=== PATIENT | female | born 1990 | race Caucasian/White ===

== ENCOUNTER 2020-12-25 18:41 | Observation (INO) | payer OTHER, SELFPAY ==
[2020-12-25 20:35] VITALS: BP 128/87; PULSE 99
[2020-12-25 20:46] VITALS: BP 133/79; PULSE 83
[2020-12-25 21:00] VITALS: BP 127/78; PULSE 99
[2020-12-25 21:16] VITALS: BP 126/81; PULSE 86
[2020-12-25 21:30] VITALS: BP 121/82; PULSE 102
[2020-12-25 21:46] VITALS: BP 133/79; PULSE 79
[2020-12-25 21:56] VITALS: BMI 35.5
--- NOTE | 2020-12-25 21:56 | LDADM ---
This patient, Maame Muir, was admitted to Labor/Delivery/Recovery 105 on 12/25/20 at 18:41. Plans for labor, pain management and were discussed with patient. Patient/family oriented to hospital policies and general routines including ID bracelet, bed and alarms, visiting hours, pain management, procedures, bathroom and other care routines, personal items, smoking policy, room service/diet and guest tray routines, security routines, and visiting hours. Patient/Family are encouraged to report perceived risks to care and to ask questions if they do not understand what they are told or what they should do. See OBIX for further documentation.
--- NOTE | 2020-12-26 07:53 | PM.OBTRLD ---
OB - Triage/Final Diagnosis Visit Information Date of evaluation: 12/25/20 Reason for evaluation: threatened labor Comments/Additional reasons for admission: I have assessed the risk for this patient, Maame Muir, and determined that she would benefit from observation care. Evaluation Vital signs: Vital Signs - 24 hr 12/25/20 20:35 12/25/20 20:46 12/25/20 21:00 Pulse Rate 99 83 99 Blood Pressure 128/87 133/79 127/78 12/25/20 21:16 12/25/20 21:30 12/25/20 21:46 Pulse Rate 86 102 H 79 Blood Pressure 126/81 121/82 133/79
== END 2020-12-25 22:08 | disposition home or self-care (01) ==
PROVIDERS: Admitting Provider Obstetrics & Gynecology; Visit Provider Obstetrics & Gynecology
DX: O47.03 False labor before 37 completed weeks of gestation, third trimester (principal); Z3A.36 36 weeks gestation of pregnancy
CPT/HCPCS: G0378; G0379

== ENCOUNTER 2020-12-31 12:11 | Outpatient (RCR) | payer OTHER, SELFPAY ==
[2020-11-30 09:25] VITALS: BP 126/75; PULSE 91
[2020-11-30 09:48] LABS: Basophils Percent Auto 0.2 % (0.2-1.2); Eosinophils Absolute Auto 0.1 K/mm3 (0-0.3); Eosinophils Percent Auto 0.7 % (0-4.4); Hemoglobin 11.7 g/dL (12.0-15.0); Immature Granulocyte Absolute 0.11 K/mm3 (0.00-0.031); Immature Granulocyte Percent A 1.2 % (0-0.5); Lymphocytes Absolute Auto 1.52 K/mm3 (0.9-3.2); Lymphocytes Percent Auto 16.8 % (18.3-44.2); Mean Corpuscular HGB Conc 33.4 g/dl (32-36); Mean Corpuscular Hemoglobin 29.1 pg (26-34); Mean Corpuscular Volume 87.1 fl (80-100); Mean Platelet Volume 11.6 fl (7.4-10.4); Monocytes Absolute Auto 0.7 K/mm3 (0.1-0.6); Monocytes Percent Auto 7.4 % (2.6-8.5); Neutrophils Absolute Auto 6.7 K/mm3 (1.3-6.7); Neutrophils Percent Auto 73.7 % (45.5-73.1); Platelet Count Result 172 k/mm3 (150-375); Red Blood Count 4.02 M/mm3 (4.2-5.4); Red Cell Distribution Width 13.2 % (11.5-14.5)
[2020-11-30 09:59] LABS: Alanine Aminotransferase 22 U/L (4-35); Albumin Level 3.6 g/dL (3.5-5.1); Alkaline Phosphatase 107 U/L (38-126); Anion Gap 6 mmol/L (8-16); Aspartate Amino Transferase 22 U/L (14-36); Bilirubin,Total 0.3 mg/dL (0.2-1.3); Blood Urea Nitrogen 9 mg/dL (7-17); Calcium 8.7 mg/dL (8.4-10.2); Carbon Dioxide 20 mmol/L (22-30); Chloride 110 mmol/L (98-107); Estimated Glomerular Filt Rate > 60; Glucose 81 mg/dL (65-110); Potassium 3.6 mmol/L (3.4-5.0); Sodium 136 mmol/L (137-145); Uric Acid 2.3 mg/dL (2.5-7.5)
[2020-11-30 10:00] LABS: Creatinine Urine 69.8 mg/dL; Total Protein Urine Random 13 mg/dL; Ur Ttl Prot Creatinine Ratio 0.19 mg/mg (0-0.20)
[2020-11-30 10:08] LABS: Add Urine Microscopic? YES; Appearance Urine Cloudy (Clear); Bacteria Urine Trace /hpf; Bilirubin Urine Negative (Negative); Blood Urine Negative (Negative); Color Urine Yellow (Yellow); Glucose Urine UA Negative (Negative); Ketones Urine Negative (Negative); Leukocyte Esterase Ur Trace LEU/UL (NEGATIVE); Mucus Urine Rare /lpf; Nitrate Urine Negative (Negative); Protein Urine Negative (Negative); RBC Urine 0-2 /hpf (0-2); Specific Grav Ur 1.011 (1.001-1.035); Squamous Epithelial Cell Urine Moderate /hpf (Few); Urobilinogen Urine Negative mg/dL (<2.0); WBC Urine 0-3 /hpf (0-3)
[2020-12-10 10:04] VITALS: BP 126/75; PULSE 96
[2020-12-17 13:37] VITALS: BP 127/69; PULSE 94
[2020-12-24 13:13] VITALS: BP 117/75; PULSE 84
[2020-12-31 12:39] VITALS: BP 122/75; PULSE 92
== END 2021-01-07 12:47 | disposition home or self-care (01) ==
LOC: ANHOBOP 12:11
PROVIDERS: Visit Provider Student in an Organized Health Care Education/Training Program
DX: O26.893 Other specified pregnancy related conditions, third trimester (principal); R03.0 Elevated blood-pressure reading, without diagnosis of hypertension; Z3A.33 33 weeks gestation of pregnancy
CPT/HCPCS: 36415; 59025; 80053; 81001; 82570; 84156; 84550; 85025; 87086

== ENCOUNTER 2021-01-06 05:45 | Inpatient (IN) | payer OTHER, SELFPAY ==
[2021-01-06] VITALS (144 sets, daily range): BP systolic 80–147; BP diastolic 37–98; PULSE 62–208; RESP 16; TEMP 35.9–37.3; O2SAT 94–100; BMI 35.8
[2021-01-06 06:48] LABS: Basophils Percent Auto 0.2 % (0.2-1.2); Eosinophils Absolute Auto 0.1 K/mm3 (0-0.3); Eosinophils Percent Auto 0.6 % (0-4.4); Hematocrit 35.1 % (37.0-47.0); Immature Granulocyte Absolute 0.06 K/mm3 (0.00-0.031); Immature Granulocyte Percent A 0.6 % (0-0.5); Lymphocytes Absolute Auto 1.87 K/mm3 (0.9-3.2); Lymphocytes Percent Auto 18.4 % (18.3-44.2); Mean Corpuscular HGB Conc 34.2 g/dl (32-36); Mean Corpuscular Hemoglobin 29.1 pg (26-34); Mean Corpuscular Volume 85.2 fl (80-100); Mean Platelet Volume 12.2 fl (7.4-10.4); Monocytes Percent Auto 9.6 % (2.6-8.5); Neutrophils Absolute Auto 7.2 K/mm3 (1.3-6.7); Neutrophils Percent Auto 70.6 % (45.5-73.1); Platelet Count Result 182 k/mm3 (150-375); Red Blood Count 4.12 M/mm3 (4.2-5.4); Red Cell Distribution Width 13.1 % (11.5-14.5); White Blood Count 10.2 K/mm3 (4.5-10.0)
[2021-01-06] MEDS: OXYTOCIN 30 UNITS/NS 500 ML 30 UNITS/500 ML BAG IV CONT (07:02)
[2021-01-06] MEDS: LACTATED RINGERS 1,000 ML 125 ML IV CONT ×2 (07:03→13:06)
[2021-01-06 07:04] LABS: Alanine Aminotransferase 27 U/L (4-35); Albumin Level 3.5 g/dL (3.5-5.1); Alkaline Phosphatase 156 U/L (38-126); Anion Gap 5 mmol/L (8-16); Aspartate Amino Transferase 26 U/L (14-36); Bilirubin,Total 0.3 mg/dL (0.2-1.3); Blood Urea Nitrogen 7 mg/dL (7-17); Calcium 9.4 mg/dL (8.4-10.2); Carbon Dioxide 21 mmol/L (22-30); Chloride 109 mmol/L (98-107); Estimated Glomerular Filt Rate > 60; Glucose 84 mg/dL (65-110); Potassium 3.6 mmol/L (3.4-5.0); Sodium 135 mmol/L (137-145)
--- NOTE | 2021-01-06 07:17 | LDADM ---
This patient, Maame Muir, was admitted to Labor/Delivery/Recovery 106 on 01/06/21 at 05:45. Plans for labor, pain management and were discussed with patient. Patient/family oriented to hospital policies and general routines including ID bracelet, bed and alarms, visiting hours, pain management, procedures, bathroom and other care routines, personal items, smoking policy, room service/diet and guest tray routines, security routines, and visiting hours. Patient/Family are encouraged to report perceived risks to care and to ask questions if they do not understand what they are told or what they should do. See OBIX for further documentation.
[2021-01-06 07:24] LABS: Uric Acid 3.1 mg/dL (2.5-7.5)
--- NOTE | 2021-01-06 09:31 | WPDANESEPPF ---
Anes - Initial Pre Proc Eval Procedure: labor epidural Date/Time: 01/06/21 09:31 Surgeon: Demetrio Sheikh MD Pre Op Diagnosis: labor pain Pre Op Diagnosis: IOL Patient Data Age: 30 Gender: F Height: 1.6 m Weight: 91.81 kg Last Vital Signs Temp 37.0 C 01/06/21 07:04 Pulse 76 01/06/21 09:16 BP 130/74 01/06/21 09:16 Allergies Allergy/AdvReac Type Severity Reaction Status Date / Time No Known Allergies Allergy Unverified 03/26/15 13:33 Home Medications Medication Instructions Recorded Confirmed Type PNV cmb#95-ferrous fumarate-FA 1 tablet PO DAILY 12/10/20 12/25/20 History [] Laboratory Tests 01/06/21 01/06/21 01/06/21 06:30 06:30 06:30 WBC 10.2 K/mm3 H K/mm3 (4.5-10.0) RBC 4.12 M/mm3 L M/mm3 (4.2-5.4) Hgb 12.0 g/dL g/dL (12.0-15.0) Hct 35.1 % L % (37.0-47.0) MCV 85.2 fl fl (80-100) MCH 29.1 pg pg (26-34) MCHC 34.2 g/dl g/dl (32-36) RDW 13.1 % % (11.5-14.5) Plt Count 182 k/mm3 k/mm3 (150-375) MPV 12.2 fl H fl (7.4-10.4) Immature Gran % (Auto) 0.6 % H % (0-0.5) Neut % (Auto) 70.6 % % (45.5-73.1) Lymph % (Auto) 18.4 % % (18.3-44.2) Morris % (Auto) 9.6 % H % (2.6-8.5) Eos % (Auto) 0.6 % % (0-4.4) Baso % (Auto) 0.2 % % (0.2-1.2) Lymph # (Auto) 1.87 K/mm3 K/mm3 (0.9-3.2) Morris # (Auto) 1.0 K/mm3 H K/mm3 (0.1-0.6) Eos # (Auto) 0.1 K/mm3 K/mm3 (0-0.3) Baso # (Auto) 0.0 K/mm3 K/mm3 (0.0-0.1) Abs Immat Gran (auto) 0.06 K/mm3 H K/mm3 (0.00-0.031) Absolute Neuts (auto) 7.2 K/mm3 H K/mm3 (1.3-6.7) Absolute Nucleated RBC 0.0 K/mm3 K/mm3 (0.0-0.012) Nucleated RBC % 0.0 % % (0.0-0.2) Sodium Potassium Chloride Carbon Dioxide Anion Gap BUN Creatinine Estim Creat Clear Calc Estimated GFR Glucose Uric Acid Cancelled Calcium Total Bilirubin AST ALT Alkaline Phosphatase Total Protein Albumin RPR Pending Blood Type Antibody Screen 01/06/21 01/06/21 06:30 06:30 WBC RBC Hgb Hct MCV MCH MCHC RDW Plt Count MPV Immature Gran % (Auto) Neut % (Auto) Lymph % (Auto) Morris % (Auto) Eos % (Auto) Baso % (Auto) Lymph # (Auto) Morris # (Auto) Eos # (Auto) Baso # (Auto) Abs Immat Gran (auto) Absolute Neuts (auto) Absolute Nucleated RBC Nucleated RBC % Sodium 135 mmol/L L mmol/L (137-145) Potassium 3.6 mmol/L mmol/L (3.4-5.0) Chloride 109 mmol/L H mmol/L (98-107) Carbon Dioxide 21 mmol/L L mmol/L (22-30) Anion Gap 5 mmol/L L mmol/L (8-16) BUN 7 mg/dL mg/dL (7-17) Creatinine 0.60 mg/dL L mg/dL (0.7-1.0) Estim Creat Clear Calc Not Reportable Estimated GFR > 60 (59 - ) Glucose 84 mg/dL mg/dL (65-110) Uric Acid 3.1 mg/dL mg/dL (2.5-7.5) Calcium 9.4 mg/dL mg/dL (8.4-10.2) Total Bilirubin 0.3 mg/dL mg/dL (0.2-1.3) AST 26 U/L U/L (14-36) ALT 27 U/L U/L (4-35) Alkaline Phosphatase 156 U/L H U/L (38-126) Total Protein 7.0 g/dL g/dL (6.3-8.2) Albumin 3.5 g/dL g/dL (3.5-5.1) RPR Blood Type O Positive Antibody Screen Negative Patient hx anesthesia problems: none Family hx anesthesia problems: [facility] Family History Family History (Updated 12/10/20 @ 09:17 by Jayde
[2021-01-06 10:01] LABS: Rapid Plasma Reagin Non-Reactive (NonReactive)
--- NOTE | 2021-01-06 11:46 | PM.IMHP ---
H&P: HPI History of Present Illness Date/Time: 01/06/21 11:46 [age] year 3 para admitted for induction of labor at term. She has an early ultrasound confirming dates. Her cervix is favorable. Chief Complaint: Induction of labor at term Review of Systems Review of Systems: All systems reviewed & are unremarkable except as noted in HPI and below PMFSH Family History Family History Sibling Malignant hypothermia due to anesthesia Social History Social History Smoking status: Never smoker Substance use: never Gender identity (if verbalized by the patient): Female Spiritual care concerns: No Meds Home Medications and Allergies Home Medications Medication Instructions Recorded Confirmed Type PNV cmb#95-ferrous fumarate-FA 1 tablet PO DAILY 12/10/20 12/25/20 History [] Allergies Allergy/AdvReac Type Severity Reaction Status Date / Time No Known Allergies Allergy Unverified 03/26/15 13:33 Vital Signs Vital Signs - 24 hr 01/06/21 06:33 01/06/21 06:46 01/06/21 07:01 Temperature Pulse Rate 86 82 83 Blood Pressure 131/83 129/80 134/75 Pulse Oximetry 01/06/21 07:04 01/06/21 07:16 01/06/21 07:31 Temperature 98.6 F Pulse Rate 87 81 Blood Pressure 135/81 122/82 Pulse Oximetry 01/06/21 07:46 01/06/21 08:01 01/06/21 08:16 Temperature Pulse Rate 82 85 83 Blood Pressure 138/88 147/81 H 136/83 Pulse Oximetry 01/06/21 08:31 01/06/21 08:46 01/06/21 09:00 Temperature 99 F Pulse Rate 82 79 Blood Pressure 142/85 H 139/82 Pulse Oximetry 01/06/21 09:01 01/06/21 09:16 01/06/21 09:31 Temperature Pulse Rate 84 76 80 Blood Pressure 106/72 130/74 136/80 Pulse Oximetry 01/06/21 09:35 01/06/21 09:36 01/06/21 09:37 Temperature Pulse Rate 86 87 Blood Pressure 117/98 H 142/84 H Pulse Oximetry 99 01/06/21 09:39 01/06/21 09:40 01/06/21 09:41 Temperature Pulse Rate 82 82 Blood Pressure 135/92 H 138/79 Pulse Oximetry 99 01/06/21 09:43 01/06/21 09:45 01/06/21 09:47 Temperature Pulse Rate 84 80 76 Blood Pressure 123/76 124/77 127/76 Pulse Oximetry 99 01/06/21 09:49 01/06/21 09:50 01/06/21 09:51 Temperature Pulse Rate 89 102 H Blood Pressure 121/79 130/54 L Pulse Oximetry 98 01/06/21 09:53 01/06/21 09:55 01/06/21 09:57 Temperature Pulse Rate 93 90 69 Blood Pressure 121/70 120/67 123/69 Pulse Oximetry 99 01/06/21 09:59 01/06/21 10:00 01/06/21 10:01 Temperature Pulse Rate 92 102 H Blood Pressure 114/70 90/49 L Pulse Oximetry 98 01/06/21 10:03 01/06/21 10:05 01/06/21 10:07 Temperature Pulse Rate 77 67 67 Blood Pressure 118/63 109/70 119/71 Pulse Oximetry 98 01/06/21 10:09 01/06/21 10:10 01/06/21 10:11 Temperature Pulse Rate 71 116 H Blood Pressure 121/72 80/37 L Pulse Oximetry 100 01/06/21 10:13 01/06/21 10:15 01/06/21 10:17 Temperature Pulse Rate 79 65 101 H Blood Pressure 111/70 107/68 99/60 L Pulse Oximetry 99 01/06/21 10:19 01/06/21 10:20 01/06/21 10:25 Temperature Pulse Rate 79 Blood Pressure 108/65 Pulse Oximetry 100 100 01/06/21 10:30 01/06/21 10:31 01/06/21 10:35 Temperature Pulse Rate 82 Blood Pressure 112/64 Pulse Oximetry 100 100 01/06/21 10:40 01/06/21 10:45 01/06/21 10:46 Temperature Pulse Rate 76 Blood Pressure 112/75 Pulse Oximetry 100 100 01/06/21 10:50 01/06/21 10:55 01/06/21 11:00 Temperature 96.7 F L Pulse Rate Blood Pressure Pulse Oximetry 100 99 99 01/06/21 11:01 01/06/21 11:05 01/06/21 11:10 Temperature Pulse Rate 74 Blood Pressure 113/72 Pulse Oximetry 100 100 01/06/21 11:15 01/06/21 11:16 01/06/21 11:20 Temperature Pulse Rate 76 Blood Pressure 115/77 Pulse Oximetry 99 99 01/06/21 11:25 01/06/21 1
--- NOTE | 2021-01-06 11:49 | PM.OBPNLAB ---
Pain Control Date/time seen: 01/06/21 11:49 Pain control: tolerating well and epidural Pelvic Exam Dilation (cm): 5 Effacement (%): 50 station: 0 Amniotic membrane status: Leaking Contractions Monitor mode: Palpation Contraction pattern: Regular Status status: Category ll
--- NOTE | 2021-01-06 15:23 | PM.OBPRVD ---
OB - Delivery Note Procedure Delivery date: 01/06/21 Procedure: mil Intrapartal events: None Induction method: AROM Delivery augmentation: pitocin Delivery monitor: external FHT Route of delivery: Episiotomy description: None Laceration Description: None Quantitative Blood Loss (ml): 58 Disposition: floor [facility] Burn Baby Date of : 01/06/21 Time of : 15:15 Weeks of gestation at delivery: 39 gender: Male presentation: vertex position: Right Occiput Anterior Placenta delivery description: Spontaneous cord vessel description: 3 Vessels and Nuchal Cord score one minute: 8 score five minutes: 9
--- NOTE | 2021-01-06 17:35 | PC.NURSE ---
Patient transferred to post room #286 [address] from labor and delivery. Support person present. Oriented to unit, room, information board, rooming in, admission packet and security measures. Patient verbalizes understanding.
[2021-01-07] MEDS: IBUPROFEN 600 MG TABLET PO ×3 (00:01→15:24)
[2021-01-07 04:22] VITALS: BP 115/73; PULSE 65; RESP 16; TEMP 36.7; O2SAT 98
[2021-01-07 05:28] LABS: Hematocrit 32.6 % (37.0-47.0); Hemoglobin 11.1 g/dL (12.0-15.0)
[2021-01-07] MEDS: DOCUSATE SODIUM 100 MG CAPSULE PO ×2 (07:09→15:24)
[2021-01-07] MEDS: MULTIVIT/MIN/PREN/FOL AC/IRON TABLET 1 TAB PO (07:09)
--- NOTE | 2021-01-07 07:40 | P.PNOB_ITS ---
OB - PN: Subj Subjective Date/time seen: 01/07/21 07:40 Patient comments: no complaints and pain well controlled baby status: doing well and nursing well OB - PN: Obj Data Labs CBC & Chem 7: 01/07/21 04:17 01/06/21 06:30 Labs: Laboratory Results - last 24 hr 01/06/21 01/06/21 01/07/21 06:30 06:30 04:17 Hgb 11.1 L Hct 32.6 L RPR Non-reactive Blood Type O Positive Antibody Screen Negative OB - PN A/P Plan day: 1 Plan: routine care Time Spent With Patient Time: Total time spent is greater than 50% in coordination of care (as do cumented) at patient's floor/unit and/or counseling patient: Time with patient: less than 15 minutes Review of Systems Review of Systems: All systems reviewed & are unremarkable except as noted in HPI and below Exam Const: General: no acute distress Eyes: General: appearance normal, both eyes and all related structures Neck: Neck: supple and no JVD Thyroid: thyroid normal Resp: Effort & Inspection: normal respiratory effort Auscultation: clear to auscultation bilaterally Cardio: Rate: regular rate Rhythm: regular rhythm GI: Inspection: non-distended GI Palp: Yes Soft to palpation, No Tenderness to palpation present (GI) and No Guarding due to palpation present (GI) Auscultation: normal bowel sounds : General: Yes bladder normal to palpation External Female Exam: normal external appearance Speculum Exam - Vagina: normal vaginal discharge and No vaginal bleeding Speculum Exam - Cervix: nontender Bimanual exam- vagina & uterus: bladder normal to palpation and No Cervical tenderness present OB/external & speculum: No vaginal bleeding Skin: General skin exam: no rashes or lesions noted Extrem: General: normal to inspection and no edema Psych: Mental Status: mental status grossly normal Affect: normal affect
--- NOTE | 2021-01-07 07:53 | PM.DS ---
DS: Admitting Diagnosis Admitting Diagnosis term iup DS: Summary Hospital Course Hospital Course: iol at term. umremarkable course Time Spent with Patient Time attestation: Total time spent providing and/or coordinating discharge services: Exam Const: General: no acute distress Eyes: General: appearance normal, both eyes and all related structures Neck: Neck: supple and no JVD Thyroid: thyroid normal Resp: Effort & Inspection: normal respiratory effort Auscultation: clear to auscultation bilaterally Cardio: Rate: regular rate Rhythm: regular rhythm GI: Inspection: non-distended GI Palp: Yes Soft to palpation, No Tenderness to palpation present (GI) and No Guarding due to palpation present (GI) Auscultation: normal bowel sounds : General: Yes bladder normal to palpation External Female Exam: normal external appearance Speculum Exam - Vagina: normal vaginal discharge and No vaginal bleeding Speculum Exam - Cervix: nontender Bimanual exam- vagina & uterus: bladder normal to palpation and No Cervical tenderness present OB/external & speculum: No vaginal bleeding Skin: General skin exam: no rashes or lesions noted Extrem: General: normal to inspection and no edema Psych: Mental Status: mental status grossly normal Affect: normal affect DS: Data Data Completed and Pending Labs on day of discharge: Labs from last 24 hours 01/07/21 01/06/21 01/06/21 04:17 06:30 06:30 Hgb 11.1 L Hct 32.6 L RPR Non-reactive Blood Type O Positive Antibody Screen Negative Discharge Plan Discharge Attending physician on discharge: Demetrio Sheikh Discharging Clinician: Demetrio Sheikh Patient Disposition: Home, Self-Care Activity: may shower, no straining and pelvic rest Diet: heart healthy Patient Instructions: Antibiotic Form Stand Alone Forms: General Discharge Information Follow-up/Referrals: Demetrio Sheikh MD [Physician] - Discharge Medications: Continued PNV cmb#95-ferrous fumarate-FA [] 28 mg iron- 800 mcg Tablet 1 tablet PO DAILY RF: 0 Date of admission: 01/06/21 05:45 Admitting Provider: Demetrio Sheikh Attending physician on admission: Demetrio Sheikh Condition: Stable
[2021-01-07 08:00] VITALS: BP 114/70; PULSE 80; RESP 18; TEMP 36.6; O2SAT 98
--- NOTE | 2021-01-07 09:24 | WPDANLDPN2 ---
Anes-Prog Note L&D Date/Time: 01/07/21 09:24 Comfortable throughout: labor and delivery Neuraxial method: epidural Epidural/Spinal procedure site: clean & non-tender Neuro status: Neuro function grossly intact. Cardiovascular status: normal Respiratory status: normal Airway patency: baseline Mental status: baseline Post-Op hydration status: normal Vital Signs: Last Vital Signs Temp 36.7 C 01/07/21 04:22 Pulse 65 01/07/21 04:22 Resp 16 01/07/21 04:22 BP 115/73 01/07/21 04:22 Pulse Ox 98 01/07/21 04:22 Pain score (VAS): 0 Post-procedural complaints: none Patient feedback: Patient satisfied with anesthetic care.
--- NOTE | 2021-01-07 11:15 | PC.NURSE ---
Assist with to breast. Demonstrated stimulation techniques to wake . Attempt to latch several times within 15 minutes, would latch and suckle for a short bursts and return to sleep. Parents will supplement at this time.
--- NOTE | 2021-01-07 12:27 | PC.NURSE ---
Addendum entered by Soni Ceballos RN 01/07/21 12:33: pt seen at 1000 Original Note: Consult with pt., mother reports has not been eager to feed, spitty, with short feedings and not maintaining latch. Mother has supplemented after most feedings. Reviewed infants are frequently spitty the first few days and should resolve, infant was circumcised within the hour and may be sleepy from procedure. Mother breastfed first child 7 years ago. Infant is able to freely thrust tongue past gum ridge and flange both lips. Skin is intact on both nipples, no redness and bruising noted. Reviewed infant feeding cues, frequencies, duration of feedings, feeding elimination flow sheet, and signs of adequate intake. Demonstrated stimulation techniques to wake infant for feeding. Assisted with to breast. Reviewed positioning/alignment in cross cradle, holding breast in ?U? hold and guided asymmetrical latch on. Discussed rational for each. able to latch correctly. Infant made no effort to suckle. Large spit up X 3 while attempting. Suggested skin to skin and attempt again in 1 hours.
[2021-01-07 12:30] VITALS: BP 112/79; PULSE 78; RESP 18; TEMP 36.6; O2SAT 99
[2021-01-07 15:30] VITALS: BP 118/74; PULSE 70; RESP 18; TEMP 36.8
--- NOTE | 2021-01-07 16:01 | PC.NURSE ---
Self care and infant care discharge instructions given including follow up visit date and time. Parents verbalized understanding. No questions or concerns verbalized. Very pleasant. at side.
[2021-01-08 07:59] VITALS: BP 125/78; PULSE 81; RESP 16; TEMP 36.9; O2SAT 99
== END 2021-01-07 18:00 | disposition home or self-care (01) | DRG 807 ==
LOC: ANHLDR 05:51 → ANHOB2 17:54
PROVIDERS: Admitting Provider Obstetrics & Gynecology; Visit Provider Obstetrics & Gynecology
DX: O13.4 Gestational [pregnancy-induced] hypertension without significant proteinuria, complicating childbirth (principal); Z37.0 Single live birth; O69.81X0 Labor and delivery complicated by cord around neck, without compression, not applicable or unspecified; Z3A.38 38 weeks gestation of pregnancy
CPT/HCPCS: 36415; 80053; 84550; 85014; 85018; 85025; 86592; 86850; 86900; 86901; A9270; J2590; J2795; J7120

== ENCOUNTER 2023-03-08 07:55 | Outpatient (CLI) | payer OTHER, SELFPAY ==
--- NOTE | ~2023-03-08 | MMUS_ITS ---
EXAMINATION: MM diagnostic cecli BI w rob, US breast BI limited HISTORY: Bilateral breast pain TECHNIQUE: Craniocaudal, mediolateral, and mediolateral oblique 3-D tomosynthesis images of the willie ts were performed and synthetic 2-D images were generated. CAD analysis was submitted and interpreted . High resolution limited bilateral breast ultrasound was performed. COMPARISON: None, baseline BREAST PARENCHYMAL COMPOSITION: The breasts are heterogeneously dense, which may obscure small masses . FINDINGS: MAMMOGRAPHIC FINDINGS: No suspicious mass, calcification, or architectural distortion are identified in either breast to sug gest malignancy. No mammographic correlate is identified in either breast for the patient's reported breast pain. ULTRASOUND: Right breast: There is 7 mm x 3 mm oval, circumscribed, parallel, hypoechoic mass with no posterior f eatures or internal vascularity at the 10:00 location, 4 cm from the nipple. There is a 1.7 x 0.5 cm circumscribed, parallel, anechoic mass with possible thin septation at the 10:00 location, 10 cm from the nipple. Left breast: No sonographic correlate is identified for the reported painful area of the left breast. IMPRESSION: 1. Probably benign sonographically detected right breast masses. No mammographic or sonographic corre late identified for the patient's reported breast pain. 2. Recommend 6 month follow-up targeted right breast ultrasound and clinical follow-up of the breast pain. BI-RADS category 3, probably benign findings. Reviewed, dictated and finalized at location A. IMPRESSION: 1. Probably benign sonographically detected right breast masses. No mammographi c or sonographic correlate identified for the patient's reported breast pain. 2. Recommend 6 month follow-up targeted right breast ultrasound and clinical fo llow-up of the breast pain. BI-RADS category 3, probably benign findings.
== END 2023-03-08 07:56 ==
PROVIDERS: PCP Obstetrics & Gynecology; Visit Provider Obstetrics & Gynecology
DX: N64.4 Mastodynia (principal); R92.8 Other abnormal and inconclusive findings on diagnostic imaging of breast
CPT/HCPCS: 76642; 77062; 77066; G0279

== ENCOUNTER 2024-12-17 08:22 | Outpatient (CLI) | payer BC, SELFPAY ==
--- NOTE | ~2024-12-17 | MM_ITS ---
EXAMINATION: MM diagnostic cecil BI w rob HISTORY: Breast pain TECHNIQUE: Additional 3-D tomosynthesis images of the breasts were performed and synthetic 2-D images were generated. CAD analysis was submitted and interpreted. COMPARISON: 03/08/2023 BREAST PARENCHYMAL COMPOSITION: Dense: The breasts are extremely dense, which lowers the sensitivity of mammography. FINDINGS: The breasts are stable. No suspicious masses, calcifications or architectural distortion ar e identified in either breast to suggest malignancy. IMPRESSION: 1. No evidence for malignancy in either breast. 2. Routine yearly screening mammogram and regular clinical breast examination are recommended. BI-RADS Category 1: Negative Reviewed, dictated and finalized at location A. IMPRESSION: 1. No evidence for malignancy in either breast. 2. Routine yearly screening mammogram and regular clinical breast examination a re recommended. BI-RADS Category 1: Negative
--- OUTSIDE RECORDS SUMMARY | 2024-12-17 08:32 | XMS_ITS | Encounter Summary ---
Author Organization [facility] System Address [address] [place] [id number] Care Team Providers Care Road Machinery Inspector Name Role Phone Alessandra García MD Primary Care Pr ovider Unavailable BRADLY Vera-Tressa GUAMAN Primary Care Provider None, Provider Primary Care Provider Unavaila Viki Reyna NP Primary Care Provider [phone] Encounter Details Date Type Department Care Team (Late st Contact Info) Description 07/21/2021 E[place]kid[place]art Message Enc [facility] [address] [place] [address] Alessandra García MD LCV Social History Tobacco Use Types Packs/Day Years Used Date Smoking Tobacco: Never Smokeless Tobacco: Never Alcohol Use Standard Drinks/Week Comments Yes 0 (1 standard drink = 0.6 oz pur e alcohol) AUDIT-C Answer Date Recorded Frequency of Alcohol Consumption Monthly or less 06/12/2019 Average Number of Drinks Not on file 020 Frequency of Binge Drinking Not on file 09/2019 PHQ-2 Answer Date Recorded PHQ-2 Score - If the patient scores above 3, please move on to questions 3-9 0 06/14/2021 Comments No Sex and Gender Information Value Date Recorded Sex Assigned at Female 05/31/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 documented as of this encounter Progress Notes * Marlin Meyers RN - 07/21/2021 12:11 PM CDT See my chart message documented in this encounter Plan of Treatment Not on file documented as of this encounter Visit Diagnoses Not on filedocumented in this encounter Additional Health Concerns Infection Onset Date Last Indicated Resolved Time COVID-19 Rule Out 03/01/2022 03/01/2022 03/01/2022 9:10 AM CDT COVID-19 Rule Out 03/02/2022 03/02/2022 03/02/2022 11:58 AM CDT Assessment Noted Time PHQ-9 Depression Total Score: 0 06/14/19 11:53 AM CR[employer] 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 [address] PCP - General Nurse Practitioner Family 06/03/24 documented as of this encounter
--- OUTSIDE RECORDS SUMMARY | 2024-12-17 08:32 | XMS_ITS | Clinical Summary ---
Author Organization [facility] Address [address] [place] [id number] Care Team Providers Care Watch Technician Name Role Phone Alessandra García MD Primar y Care Provider Allergies Active Allergy Reactions Criticality Noted Date Comments Topiramate Other (See comments) Low 12/14/2017 Slurred speech, brain fog. Slurred speech, brain fog. Slurred speech, brain fog. Slurred speech, brain fog. Medications triamcinolone (KENALOG) 0.1 % ointment 2 Active cholecalciferol (VITAMIN D-3) 25 mcg (1,000 unit) tablet Take 1 tablet (1,000 Units total) by mouth daily Active clobetasoL (TEMOVATE) 0.05 % ointment Apply to psoriasis on back twice daily. 30 days supply. 2 Active sertraline (ZOLOFT) 50 mg tablet 2 Active Lo Loestrin Fe 1 mg-10 mcg (24)/10 mcg (2) tablet per tablet 3 Active colchicine (COLCRYS) 0.6 mg tablet Take 1 tablet (0.6 mg total) by mouth daily 90 tablet 3 Active celecoxib (CeleBREX) 200 mg capsule Take 2 capsules (400 mg total) by mouth daily 180 capsule 1 3 Active adalimumab (HUMIRA, CF, PEN) 40 mg/0.4 mL pen injector kit Inject 0.4 mL (40 mg total) under the skin every 14 (fourteen) days 2 each 2 4 Active adalimumab (HUMIRA, CF, PEN) 40 mg/0.4 mL pen injector kit Inject 0.4 mL (40 mg total) under the skin every 14 (fourteen) days 6 each 1 5 Active Active Problems No known active problems Medical History Medical History Date Comments Psoriasis 2016 Migraines 2019 Social History Tobacco Use Types Packs/Day Years Used Date Smoking Tobacco: Never Smokeless Tobacco: Never Tobacco Cessation:Counseling Given: Not Answered Comments Unknown Sex and Gender Information Value Date Recorded Sex Assigned at Not on file Legal Sex Female 7:04 AM CDT Gender Identity Not on file Sexual Orientation Not on file Obstetrics History Last Filed Vital Signs Vital Sign Reading Time Taken Comments Blood Pressure 151/95 10/10/2023 3:17 PM CDT Pulse 76 10/10/2023 3:17 PM CDT Temperature 37.4 C (99.4 F) 10/10/2023 3:17 PM CDT Respiratory Rate - - Oxygen Saturation - - Inhaled Oxygen Concentration - - Weight 64.7 kg (142 lb 9.6 oz) 10/10/2023 3:17 P M CDT Height 157.5 cm (5' 2) 10/10/2023 3:17 PM CDT Body Mass Index 26.08 10/10/2023 3:17 PM CDT Plan of Treatment Health Maintenance Due Date Last Done Comments Cervical Cancer Screening 1992 Depression Screening 1992 Hepatitis C Screening 1992 Varicella Vaccines (1 of 2 - 13+ 2-dose series) 2005 Regular Well Visit/Exam 18-64 2010 Influenza Vaccine (#1) 2025 1, 02/13/2009, 03/13/2008, Additional history exists DTaP/Tdap/Td Vaccine (8 - Td or Tdap) 11/16/2030 11/16/2020, 12/07/2006, 12/25/1997, Additional history exists Hepatitis B Screening Completed 12/13/1994 , 1992, 1992 HPV Vaccines Completed 08/13/2007, 09/2006, 12/07/2006 Pneumococcal vaccine <65 Aged Out No longer eligible based on patient's age to complete this topic Insurance [employer] [place] [employer] [place] Care Teams Watch Technician Relationship Specialty Start Date End Date Alessandra García MD [address] [place] [address] [place] [address] PCP - General Family Medicine 07/29/21
--- OUTSIDE RECORDS SUMMARY | 2024-12-17 08:32 | XMS_ITS | Clinical Summary ---
Author Organization [facility] Address [address] [place] [address] Phone Care Team Providers Care Esol Instructor Name Role Phone Reji Baca APRN, SALES INSPECTOR, Tressa Primary Care Provid er Lavon Byrnes MD Unavailable [phone] Allergies Active Allergy Reactions Criticality Noted Date Comments Topiramate Other (see Comments) 12/14/2017 Slurred speech, brain fog. Medications MULTIPLE VITAMINS-MINERA LS PO Take by mouth. Active cholecalciferol 25 mcg Tablet Take 1 Tablet by mouth daily. Active Probiotic Product ([facility] Intestinal Velma Regulat) Capsule Take 1 Capsule by mouth. Active Zinc 100 MG Tablet Take by mouth. Active Slynd 4 MG Tablet 05/27/2021 Active predniSONE (DELTASONE) 20 MG Tablet Take 1 Tablet by mouth daily. 30 Tablet 06/04/2021 Active Active Problems Problem Noted Date Diagnosed Date Rash 06/04/2021 Family History * Patient is adopted Relation Name Status Comments Brother Alive Father Alive Mother Alive Social History Tobacco Use Types Packs/Day Years Used Date Smoking Tobacco: Never Smokeless Tobacco: Never Alcohol Use Standard Drinks/Week Comments Yes 1 (1 standard drink = 0.6 oz pur e alcohol) 1 x monthly PHQ-2 Answer Date Recorded Total Score - Questions 1-9 1 05/09 Sexually Active Control Partners Comments Yes Comments Unknown Sex and Gender Information Value Date Recorded Sex Assigned at Not on file 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 Gender Identity Not on file Sexual Orientation Not on file Last Filed Vital Signs Vital Sign Reading Time Taken Comments Blood Pressure 104/78 06/04/2021 11:05 AM APRON CLEANER Pulse 91 06/04/2021 11:05 AM APRON CLEANER Temperature - - Respiratory Rate - - Oxygen Saturation 98% 06/04/2021 11:05 AM APRON CLEANER Inhaled Oxygen Concentration - - Weight 82.6 kg (182 lb 3.2 oz) 06/04/2021 11:05 AM APRON CLEANER Height 160 cm (5' 3) 06/04/2021 11:05 AM APRON CLEANER Body Mass Index 32.28 06/04/2021 11:05 AM APRON CLEANER Plan of Treatment Health Maintenance Due Date Last Done Comments Hepatitis C Virus (HCV) Screening 1992 Pap Smear 2013 Cervical Cancer Screening (CCS) 2022 HPV/Cotest 2022 SARS-COV-2 Immunization ( season) 2024 Influenza Immunization (#1) 2025 10/0 08/2010, 02/08/2011, 03/04/2009, Additional history exists Respiratory Syncytial Virus (RSV) Immunization (Adult) (1 - 1-dose 75+ series) 10/24/2067 Hepatitis B Immunization Completed 995, 1992, 1992, Additional history exists Human Papillomavirus (HPV) Immunization Completed 08/13/2007, 03/12/2007, 12/07/2006 DTaP/Tdap/Td Immunization Discontinued 2020, 12/07/2006, 12/25/1997, Additional history exists TdaP Immunization Completed 11/16/2020, 12/07/2006 Meningococcal Immunization (ACWY) Aged Out No longer eligible based on patient's age to complete this topic Pneumococcal Immunization Combined Aged Out No longer eligible based on patient's age to complete this topic Rotavirus Immunization Aged Out No lo nger eligible based on patient's age to complete this topic Insurance [facility] Care Teams Esol Instructor Relationship Specialty Start Date End Date Tressa Mendoza V, SENIOR PATROL AGENT, SALES INSPECTOR [address] [place] [address] [place] [address] PCP - General Advanced Practice Nurse 06/01/21 Lavon Byrnes MD [address] [place] [address] [place] [address] [place] [address] [phone] Consulting Physician Oncology 06/01/21
--- OUTSIDE RECORDS SUMMARY | 2024-12-17 08:32 | XMS_ITS | Clinical Summary ---
Author Organization [facility] Address [address] [place] [address] Care Team Providers Care Police Lieutenant Patrol Name Role Phone Alessandra García MD Primary Care Pr ovider Unavailable Source Comments [facility],non-owned Affiliates and Associated Physician Practices is amultiple site organization consisting of ambulatory clinics and hospital sitesin [place], [place], [place] and [place]. This disclosure is being madepursuant to the Care Everywhere program and may not contain all information available regarding this patient. Last updated 18.[employer] [employer] [facility] Allergies Active Allergy Reactions Criticality Noted Date Comments Topiramate Other 12/14/2017 Slurred speech, brain fog. Slurred speech, brain fog. Medications * Be aware that medications may not be up to date on this document. Alwaysverify current medications with the patient. predniSONE (DELTASONE) 10 MG tablet Take 8 tabs every morning for 3 days, then taper by 10 mg every 3 days 108 tablet 2 Active Additional Information Patient not taking.Reported on 12/17/2021 triamcinolone acetonide (KENALOG) 0.1 % ointment Apply to legs and body twice daily as needed for rash. 30 days supply. 80 g 3 2 Active clobetasol (TEMOVATE) 0.05 % solution Apply scalp daily as needed for psoriasis. days supply. 50 mL 3 2 Active clobetasol (TEMOVATE) 0.05 % ointment Apply to psoriasis on back twice daily. 30 days supply. 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/2021): Petechiae started May 2021 10 days after testing positive for COVID-19 Punch biopsy of petechiae from right lower leg in June 2021 revealed leukocytoclastic vasculitis Given prednisone 5 mg po daily x 7 days Referred to dermatology; went to [facility] dermatology and they will be referring her to derm at [facility] Petechiae 07/01/2021 Chronic migraine without aur a without status migrainosus, not intractable 02/17/2020 Resolved Problems Problem Noted Date Diagnosed Date Resolved Date Rash 06/04/2021 01/14/2022 Family History Medical History Relation Name Comments None Known Brother None Known Father None Known Maternal Aunt None Known Maternal Grandfather None Known Maternal Grandmother None Known Maternal Uncle Eczema Mother Psoriasis Mother None Known Other None Known Paternal Aunt None Known Paternal Grandfather None Known Paternal Grandmother None Known Paternal Uncle None Known Sister Asthma Neg Hx CVA Neg Hx Cancer - Breast Neg Hx Cancer - Other Neg Hx Cancer - Skin, Melanoma Neg Hx Cancer - Skin, Non Melanoma Neg Hx Hemophilia Neg Hx Relation Name Status Comments Brother Father Maternal Aunt Maternal Grandfather Maternal Grandmother Maternal Uncle Mother Other Paternal Aunt Paternal Grandfather Paternal Grandmother Paternal Uncle Sister Social History Tobacco Use Types Packs/Day Years Used Date Smoking Tobacco: Never Smokeless Tobacco: Never Comments Unknown Sex and Gender Information Value Date Recorded Sex Assigned at Not on file Legal 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 Gender Identity Not on file Sexual Orientation Not on file Plan of Treatment Health Maintenance Due Date Last Done Comments HIV SCREENING 10/24/2007 DTAP/TDAP/TD VACCINES (1 - Tdap) 10/24/2011 HEPATITIS B VACCINE (1 of 3 - 19+ 3-dose series) 10/24/2011 PAP SMEAR 2013 HPV VACCINE (1 - 3-dose SCDM series) 10/24/2019 COVID-19 VACCINE ( season) 2024 DEPRESSION SCREENING 05/08/2024 INFLUENZA VACCINE (#1) 2025 1, 03/04/2009, 02/13/2009, Additional history exists ZOSTER VACCINE (1 of 2) 2042 HEPATITIS C SCREENING Completed 06/17/2021 HIB VACCINE Aged Out No longer eligi ble based on patient's age to complete this topic MENINGOCOCCAL (Group B) VACCINE SHARED DECISION-MAKING Aged Out No longer eligible based on patient's age to complete this topic MENINGOCOCCAL GROUPS A/C/Y/W VACCINE Aged Out No longer eligible based on patient's age to complete this topic PNEUMOCOCCAL VACCINE Aged Out No long er eligible based on patient's age to complete this topic Insurance Care Teams Police Lieutenant Patrol Relationship Specialty Start Date End Date Alessandra García MD PCP - General 07/07/21
== END 2024-12-17 08:23 | disposition home or self-care (01) ==
LOC: ANHIMG 08:23
PROVIDERS: PCP Obstetrics & Gynecology; Visit Provider Obstetrics & Gynecology
DX: R92.8 Other abnormal and inconclusive findings on diagnostic imaging of breast (principal); N64.9 Disorder of breast, unspecified
CPT/HCPCS: 77062; 77066; G0279